=== PATIENT | female | born 1970 | race Caucasian/White ===

== ENCOUNTER 2019-06-14 19:11 | Observation (INO) ==
[2019-06-14] MEDS ORDERED: Mag Hydrox/Al Hydrox/Simeth 30 ML UDC PO PRN (23:43)
[2019-06-14] MEDS ORDERED: Naloxone 0.4 MG/ML INJ IVP PRN (23:43)
[2019-06-14] MEDS ORDERED: Ondansetron ODT 4 MG TAB.RAPDIS SL PRN (23:43)
[2019-06-15] MEDS ORDERED: Acetaminophen 325 MG TABLET PO PRN (00:04)
[2019-06-15] MEDS: Apixaban 5 MG TABLET PO SCH ×2 (00:17→08:15)
--- NOTE | 2019-06-15 01:57 | Internal Med History&Physical ---
Date of Encounter: 06/15/19 Time of Encounter: 01:46 Internal Medicine - H&P: HPI Chief complaint: SOB and weakness History of present illness: Ms. TAVERA is a pleasant functional 48-year-old female with past medical history endometriosis with menorrhagia status post D&C(2weeks ago), Bilateral pulmonary embolism on Eliquis(on it for 2 weeks) presented to the ED for worsening shortness of breath and weakness. Face to face encounter at 02:30 Am Patient has been on chronic Depo shot and was recently switched to oral contraceptives 3 months ago. Patient in April went on a 8 hour+ long car drive in addition to plane travel to [place]. Patient subsequently noticed left leg pain and swelling with progressive shortness of breath in May and was admitted to the hospital diagnosed with bilateral pulmonary embolism and questionable mass/inflamation started on eliquis then sent home. Patient since discharge 3 weeks ago have been mostly in bed limited to 5 steps to being SOB. 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 Patient since this admission have stopped OCP and has followed up with [facility] due to menorrhagia that lasted for 10 days and underwent D&C with IUD placed. Patient since then continues to be mostly in bed with limited mobility. Patient then developed headache bilateral anterior worsened with light and sound characterized by pressure like rated 5-9 fluctuating but constant. Patient tried Tylenol with mild relief. Patient denies any confusion, focal deficits, fever, chills or night sweats. Patient attempted to drive and was noted to be swerving in the street due to severe weakness and was brought to the ED by family members. Patient denied any family history of clotting disorder, CVA,. Both parents are in the 70s with no comorbidities. The patient denies smoking, drinking or drugs. Surgeries only include a C- section (20+ years ago) and D&C stated above. The patient denied any miscarriages, eclampsia or DVTs while or history of autoimmune disease. Patient admits compliance with all her questions taken everyday 5 mg twice a day. Code status was discussed and the patient proceeded with full code. Past Med Surg Social Fam HX - Social History Smoking Status: Never smoker Smokeless Tobacco Status: No Drug use: none Internal Medicine - H&P: Meds Apixaban [Eliquis] 5 mg PO BID 06/14/19 [History] Venlafaxine [Effexor] 37.5 mg PO DAILY 06/14/19 [History] Allergy/AdvReac Type Severity Reaction Status Date / Time No Known Allergies Allergy Verified 06/14/19 22:29 All Systems PM: A 10-system review of systems was performed and is negative for pertinent findings except as documented above in the HPI. Review of systems: General: No unintentional weightloss, No fever, No night sweats. Head: + headache, No injury. Ears: No discharge, No earache Eyes: No drainage, No eye pain Mouth and Throat: No new ulcers, No pain Nose and Sinus: No new congestion, No pain, Respiratory: No cough, + dyspnea Cardiovascular: No chest pain, No palpitations. Gastrointestinal: + nausea, No vomiting. No abdominal pain Genital Tract: No discharge, No pain Urinary Tract: No dysuria, No discharge. MSK: No new/worsening joint pain or new/worsening muscle ache. Endocrine: No cold intolerance, No polyuria Psychological: No suicidal, No homocidal ideation. - Constitutional Vitals: Temp Pulse Resp BP Pulse Ox 97.9 F 61 16 137/83 97 06/14/19 21:58 06/14/19 21:58 06/14/19 21:58 06/14/19 21:58 06/14/19 21:58 Exam: General Appearance: Appearing as age, well-nourished in no acute distress. Head: Atraumatic normocephalic Skin: Normal texture, normal turgor, warm, dry. Eyes: Conjunctivae not pale with no erythema, drainage, or ulcers. Anicteric. Neck: No Lymphadenopathy in the anterior/posterior cervical chain. No thyromegaly, masses or ulcers. Trachea midline. Heart: RRR, Capillary refill 3 seconds Lungs: mild accessory muscle usage, lungs clear to auscultation bilaterally, with basilar crackles. Extremities: No pitting edema, clubbing, cyanosis, or ulcers. Abdomen: Non-distended, normoactive bowel sounds. non-tender to palpation, no hepatomegally. No guarding. Neuro: AOx3 with no new sensory loss or focal deficits. MSK: Strength 5/5 Upper extremity equal bilaterally. Strength 5/5 Lower extremity equal bilaterally. NIHSS 0 Internal Med - H&P Results - Labs CBC & Chem 7: 06/15/19 01:58 06/15/19 01:58 - Summary of Assessment and Plan Summary of Assessment and Plan: 1.Acute on chronic Shortness of breath: Secondary to pulmonary embolism BL on eliquis. Patient CT showing mass unclear if patient would benefit from repeat CT constrast or Bronchoscopy. Pulmonary consult. Reviewed chart, old records. echo showing EF 60% with no strain, or diastolic dysfunction. No PA pressure measured. Ambulatory O2 to check for need for O2 at home. 2.Hyperglycemia: A1c orderred. Continue to monitor. 3.Headache: New onset Migraine symptoms(constant for few hours on day 5 debilitating with N/V.-CT head w/o contrast negative on chart review), unimproved with tylenol Patient was given fiorcet. If unimproved will likely benefit from SubQ sumitriptan. 4.HTN: likely secondary to headahce. Continue to monitor. DVT prophylaxis: Heparin. Dispo: likely <2 day stay. - Time Spent With Patient Total time spent is greater than 36 minutes 50% in coordination of care (as docu mented) at patient's floor/unit and/or counseling patient: Greater than 35 minutes
[2019-06-15 02:12] LABS: Basophils % 0.6 %; Eosinophils % 0.6 %; Hematocrit 35.2 % (35.3-44.9); Hemoglobin 11.8 g/dL (11.5-15.4); Immature Granulocytes % 0.1 % (0-4); Lymphocytes # 0.9 K/mcL (0.6-4.6); Lymphocytes % 12.4 %; Mean Corpuscular HGB Conc 33.5 g/dL (31.6-35.5); Mean Corpuscular Hemoglobin 32.4 pg (28.0-33.3); Mean Corpuscular Volume 96.7 fL (83.0-100.0); Mean Platelet Volume 8.9 fL (9.4-12.4); Monocytes # 0.5 K/mcL (0.0-1.3); Monocytes % 7.7 %; Neutrophils # 5.4 K/mcL (1.6-8.9); Platelet Count 339 K/mcL (140-400); Red Blood Count 3.64 M/mcL (3.82-4.97); Red Cell Distribution Width 11.4 % (11.5-14.5); Segmented Neutrophils % 78.6 %; White Blood Count 6.9 K/mcL (4.3-11.1)
[2019-06-15 02:31] LABS: Alanine Aminotransferase 17 Units/L (7-52); Albumin 3.7 g/dL (3.5-5.7); Albumin/Globulin Ratio 1.3 (1.1-2.2); Alkaline Phosphatase 43 Units/L (34-104); Aspartate Amino Transferase 14 Units/L (13-39); BUN/Creatinine Ratio 14 (6-26); Bilirubin,Total 0.5 mg/dL (0.3-1.0); Blood Urea Nitrogen 11 mg/dL (6-20); Calcium 8.8 mg/dL (8.6-10.3); Carbon Dioxide 25 mEq/L (23-29); Chloride 104 mEq/L (98-107); Chol/HDL Ratio 4.1 (0-4.9); Cholesterol 215 mg/dL (< 200); Globulin 2.8 g/dL (2.4-3.5); Glucose 130 mg/dL (70-105); HDL Cholesterol 52 mg/dL (40-59); LDL Cholesterol,Calculated 138 mg/dL (0-99); Magnesium 2.1 mg/dL (1.6-2.6); Osmolality,Calculated 283 (280-300); Potassium 3.7 mEq/L (3.5-5.1); Sodium 136 mEq/L (136-145); Total Protein 6.5 g/dL (6.4-8.9); Triglycerides 123 mg/dL (< 150); eGFR For African Americans > 60 (> 60); eGFR For Non-African Americans > 60 (> 60)
[2019-06-15] MEDS ORDERED: Acetaminophen/Butalbital/CaffeineTABLET PO PRN (04:29)
[2019-06-15] MEDS ORDERED: Ipratropium/Albuterol Neb 3 ML IH PRN (10:59)
[2019-06-15] MEDS ORDERED: Venlafaxine XR (24 HR) 37.5 MG CAP.ER.24H PO SCH (11:30)
[2019-06-15] MEDS ORDERED: Isovue-370 500 ML BOTTLE IVP ONE (12:53)
[2019-06-15 15:13] VITALS: BP 116/72
--- NOTE | 2019-06-15 16:10 | Discharge Summary ---
- NOTES TO OUTPATIENT PROVIDER Notes to Outpatient Provider: f/u with PCP in one week. f/u with Pulmonary Dr. Bradford in 2 weeks. Date of Encounter: 06/15/19 Time of Encounter: 16:02 - Discharge Diagnosis (1) Shortness of breath Priority: Primary Status: Acute (2) Reactive airway disease Priority: Primary Status: Acute Qualifiers: Asthma severity: mild Asthma persistence: intermittent Asthma complication type: uncomplicated Qualified Code(s): J45.20 - Mild intermittent asthma, uncomplicated (3) Migraine headache Priority: Primary Status: Acute Qualifiers: Migraine type: without aura Status migrainosus presence: without status migrainosus Intractability: not intractable Qualified Code(s): G43.009 - Migraine without aura, not intractable, without status migrainosus (4) Bilateral pulmonary embolism Priority: Secondary Status: Acute (5) Left leg DVT Priority: Secondary Status: Acute Qualifiers: Affected thrombotic vein of extremity: popliteal Chronicity: acute Qualified Code(s): I82.432 - Acute embolism and thrombosis of left popliteal vein (6) Right lower lobe pulmonary nodule Priority: Secondary Status: Acute Hospital course: Ms. Colindres is a 48 year old female with a known past medical history of chronic endometriosis with menorrhagia who used to be on OCP and Progesteron therapy, who developed acute Left leg DVT and b/l PE in 05/30/2019 got admitted at [facility] who was on heparin gtt x 4 days later switched to Eliquis, also pt did go for D & C with IUD placement for her endomteriosis a week ago now she presented to ER with shortness of breath and anxiety. She was admitted in the hospital and placed on air sampling and monitoring. Her troponin came back as negative. She was continued on her home dose of anticoagulation. I did reviewed her CTA of Chest from [facility] from 05/30/19 showed b/l PE and Rt side lung nodule could be due to thrombosis. She was evaluated by our ocular care technician here. Her repeat CTA of the chest today showed no acute PE, she does have 1 cm side Rt middle lobe lung nodule. Talked to pulmonary who recommend to f.u with them as an out pt, who may repeat another CT scan in 3 months. I did explain this to the patient. She does have possible migraine headaches which resolved with fioricet. So will d/c her home today in stable condition. - Time Spent with Patient Total time spent providing and/or coordinating discharge services: - Discharge Medications Prescriptions: New Albuterol Sulfate [Proventil Inhaler] 2 puff IH Q6HR PRN #1 hfa.aer.ad PRN Reason: Shortness Of Breath Continued Apixaban [Eliquis] 5 mg PO BID Venlafaxine [Effexor] 37.5 mg PO DAILY Home Medications: Apixaban [Eliquis] 5 mg PO BID 06/14/19 [History] Venlafaxine [Effexor] 37.5 mg PO DAILY 06/14/19 [History] Acetaminophen/Butalbital/Caffe [Fioricet] 1 each PO Q8HR PRN #20 06/15/19 [Rx] Albuterol Sulfate [Proventil Inhaler] 2 puff IH Q6HR PRN #1 hfa.aer.ad 06/15/19 [Rx] Allergies/Adverse Reactions: Allergy/AdvReac Type Severity Reaction Status Date / Time No Known Allergies Allergy Verified 06/14/19 22:29 Date of admission: 06/14/19 21:44 Primary care physician: PCP NONE Consults: 06/15/19 10:54 Consult to Pulmonology [CONS] Routine Consulting Provider: [facility] Reason for Consult: b/l PE.. Rt lung nodule Time Notified: 10:56 Call Completed: Yes - Constitutional Vitals: Temp Pulse Resp BP Pulse Ox 98.5 F 83 14 116/72 97 06/15/19 15:12 06/15/19 15:12 06/15/19 15:12 06/15/19 15:12 06/15/19 15:12 General appearance: Present: cooperative, A&O X 3, no acute distress, answers questions appropriately Exam: Gen: Alert, awake, Oriented to time,place and person Chest: Diminished breath sounds B/L, No wheezing, No crackles, No rales Heart: S1S2+ RRR No murmurs Abd: Soft, NT, BS +, No organomegaly Ext: No edema, pulses are palpable, No calf tenderness Neuro : No acute focal neuro deficits noticed Skin: No rash. - Patient Status Disposition: Home, Self-Care Condition: Good Overall status at discharge: patient is back to baseline - Discharge Instructions Follow Up With: NONE,PCP [Primary Care Provider] - Isela Bradford MD [Partnered Physician] - - Diet and Activity Activity: increase activity as tolerated Diet: low salt diet
--- NOTE | 2019-06-15 16:16 | Electrocardiograph Report ---
[address] [place], [place] [address] Test Date: 2019-06-15 Pat Name: jacky Colindres Department: 113 Room: 3B38 Gender: F Incident Manager: : [id number] Requested By: Marcy Feliciano Order Number: [id number] Reading MD: Forrest Cook Measurements Intervals [place] Rate: 58 P: 40 WY: 155 QRS: -7 QRSD: 102 T: 15 QT: 425 QTc: 423 Interpretive Statements SINUS BRADYCARDIA LOW QRS VOLTAGE IN PRECORDIAL LEADS Electronically Signed On 06-15-2019 16:14:45 EDT by Forrest Cook
--- NOTE | 2019-06-15 16:17 | Electrocardiograph Report ---
[address] [address] Test Date: 2019-06-15 Pat Name: jacky Colindres Department: 113 Room: 3B38 Gender: F Commercial Counsel: : 1970 Requested By: Marcy Feliciano Order Number: [id number] Reading MD: Forrest Cook Measurements Intervals [place] Rate: 70 P: 27 MS: 144 QRS: -10 QRSD: 91 T: 26 QT: 412 QTc: 432 Interpretive Statements SINUS RHYTHM LOW QRS VOLTAGE IN PRECORDIAL LEADS Electronically Signed On 06-15-2019 16:16:23 EDT by Forrest Cook
--- NOTE | 2019-06-15 16:17 | Pulmonology Consult Note ---
Date of Encounter: 06/15/19 Time of Encounter: 11:50 Assessment and Plan (1) Pulmonary nodule, right Current Visit: Yes Status: Acute I have reviewed CT report from outside hospital and unfortunately images are not available and discussed with primary team it will be better to have a follow-up CT chest since it has been about 2 weeks from her previous CT and she is still symptomatic to make sure there is no clot burden and follow-up CT chest shows no evidence of pulmonary embolism and there is a lung nodule with the location and patient is low risk I do not feel strongly this is malignant in nature and outpatient follow-up either short-term interval CT or a PET scan would be reasonable to be done as outpatient. Location of this nodule would be difficult to biopsy due to the size and also her proximity to right hemidiaphragm. (2) Shortness of breath Current Visit: Yes Status: Acute I suspect the shortness of breath could be from recent diagnosis of pulmonary embolism and I have explained to her I suspect she will do better hopefully soon and there is no evidence of any major abnormalities in her lung CT scan. She will need to be on anticoagulation for at least 3 months and clearly this is looks like a provoked pulmonary embolism from possibly been on oral contrac eptive and long trip. Thank you for consultation and please call for any questions. History of Present Illness Consult date: 06/15/19 Requesting physician: Nehal Zacarias Reason for consult: pulmonary embolism, abnormal CXR/CT Chief complaint: Shortness of breath History of present illness: This is a very pleasant 48-year-old female who is healthy and has been on oral contraceptive with a travel history who was found to have pulmonary embolism and also DVT. Patient was transferred from outside hospital because of shortness of breath and further evaluation after she had CT chest. Patient stated that sometimes she would have shortness of breath and denies any significant productive cough or wheezing. No history of malignancies and she denies any smoking history. Patient denies any fever or chills or weight loss. She has been on anticoagulation for the diagnosis of pulmonary embolism. There is no hemoptysis and denies any significant chest pain at this time. She does have palpitation. Past Med Surg Social Fam HX - Social History Smoking Status: Never smoker Smokeless Tobacco Status: No Drug use: none Medications and Allergies Apixaban [Eliquis] 5 mg PO BID 06/14/19 [History] Venlafaxine [Effexor] 37.5 mg PO DAILY 06/14/19 [History] Acetaminophen/Butalbital/Caffe [Fioricet] 1 each PO Q8HR PRN #20 06/15/19 [Rx] Albuterol Sulfate [Proventil Inhaler] 2 puff IH Q6HR PRN #1 hfa.aer.ad 06/15/19 [Rx] Allergy/AdvReac Type Severity Reaction Status Date / Time No Known Allergies Allergy Verified 06/14/19 22:29 All Systems: The remainder of the systems were reviewed and are negative Physical Examination Vital Signs: Vital Signs, Last 4 Hours Temp Pulse Resp BP Pulse Ox 06/15/19 15:12 98.5 F 83 14 116/72 97 General appearance: no acute distress Eyes: nonicteric ENT: oropharynx moist Mallampati (class): 2 Neck: supple, no lymphadenopathy, no JVD Effort: normal Inspection: normal Auscultation: bilateral: clear Percussion: bilateral: not dull Cardiovascular: regular rate and rhythm Gastrointestinal: normoactive bowel sounds, non-distended Integumentary: normal Extremities: no cyanosis, edema (Left lower extremity) normal mental status, non-focal exam mood appropriate Results - Laboratory Findings CBC and BMP: 06/15/19 01:58 06/15/19 01:58 Abnormal lab findings: Abnormal lab results RBC 3.64 M/mcL (3.82-4.97) L 06/15/19 01:58 Hct 35.2 % (35.3-44.9) L 06/15/19 01:58 RDW 11.4 % (11.5-14.5) L 06/15/19 01:58 MPV 8.9 fL (9.4-12.4) L 06/15/19 01:58 APTT 37.1 Seconds (26.0-36.0) H 06/15/19 01:58 Glucose 130 mg/dL (70-105) H 06/15/19 01:58 Cholesterol 215 mg/dL (< 200) H 06/15/19 01:58 LDL Cholesterol, Calc 138 mg/dL (0-99) H 06/15/19 01:58 - Diagnostic Findings CT scan - chest: report reviewed, image reviewed - Clinical Findings Intake & Output: Intake & Output 06/15/19 06/15/19 06/15/19 07:59 15:59 23:59 Weight 85.2 kg Consult Discharge Plan - Plan Referrals: Isela Bradford MD [Partnered Physician] - NONE,PCP [Primary Care Provider] - Prescriptions: Acetaminophen/Butalbital/Caffe [Fioricet] 1 each PO Q8HR PRN #20 PRN Reason: Headache Albuterol Sulfate [Proventil Inhaler] 2 puff IH Q6HR PRN #1 hfa.aer.ad PRN Reason: Shortness Of Breath
== END 2019-06-15 17:53 | disposition home or self-care (01) ==
LOC: 3BNU → SUATTDRO 21:44
PROVIDERS: ADMIT Internal Medicine; ATTEND Family Medicine